=== PATIENT | female | born 1985 | race Caucasian/White ===

== ENCOUNTER 2017-04-28 14:55 | Emergency (ER) | payer BC ==
[2017-04-28 15:02] VITALS: BP 155/87
--- NOTE | 2017-04-28 15:43 | EDM.PDOC ---
ED HPI GENERAL MEDICAL PROBLEM - General Chief Complaint: Chest Pain Stated Complaint: CHEST PRESSURE/SOB Time Seen by Provider: 04/28/17 15:11 Source of Information: Reports: Patient, RN Notes Reviewed - History of Present Illness INITIAL COMMENTS - FREE TEXT/NARRATIVE: 31-year-old female comes in with shortness of breath. She's had this on and off for the last couple of days. Somewhat worse this morning. She feels like she can "not take a deep breath". No Major discomfort with that at this time. Does have history of asthma. She was recently on steroid medicine for an allergic reaction having finished that 3 days ago. Has no current rash hives or any other sign of current allergy. She has developed a mild cough today. I sore throat. No fever or chills. - Related Data Allergies Allergy/AdvReac Type Severity Reaction Status Date / Time No Known Allergies Allergy Verified 04/28/17 15:03 Home Meds: Home Meds . [No Known Home Meds] 04/28/17 [History] Past Medical History Respiratory History: Reports: Asthma Social & Family History - Tobacco Use Smoking Status *Q: Never Smoker Second Hand Smoke Exposure: No - Alcohol Use Days Per Week of Alcohol Use: 1 Number of Drinks Per Day: 4 Total Drinks Per Week: 4 - Recreational Drug Use Recreational Drug Use: No Drug Use in Last 12 Months: No ED ROS GENERAL - Review of Systems Review Of Systems: See Below Constitutional: Denies: Fever, Chills, Diaphoresis HEENT: Denies: Rhinitis, Sinus Problem, Throat Pain, Throat Swelling Respiratory: Reports: Shortness of Breath, Wheezing, Pleuritic Chest Pain (Mild intermittent mild), Cough (Mild, nonproductive) Cardiovascular: Reports: Chest Pain GI/Abdominal: Denies: Abdominal Pain (No current chest discomfort), Nausea, Vomiting Musculoskeletal: Reports: No Symptoms. Denies: Shoulder Pain, Arm Pain, Back Pain Skin: Reports: No Symptoms Neurological: Reports: No Symptoms ED EXAM, GENERAL - Physical Exam Exam: See Below General Appearance: Alert, Anxious (Mild) Eye Exam: Bilateral Eye: PERRL Nose: Normal Inspection Throat/Mouth: Normal Inspection, Normal Oropharynx Head: No: Facial Swelling Neck: Supple, Full Range of Motion. No: Lymphadenopathy (L), Lymphadenopathy (R ) Respiratory/Chest: No Respiratory Distress, Lungs Clear, Normal Breath Sounds. No: Rales, Rhonchi, Wheezing Cardiovascular: Regular Rate, Rhythm Extremities: Normal Inspection. No: Pedal Edema, Leg Pain Neurological: Alert, Oriented, No Motor/Sensory Deficits Skin Exam: Warm, Dry, Normal Color EKG INTERPRETATION EKG Date: 04/28/17 Rhythm: NSR [place]: Normal P-Wave: Present QRS: Normal ST-T: Normal Course - Vital Signs Last Recorded V/S: Last Vital Signs Temp 96.6 F 04/28/17 15:00 Pulse 82 04/28/17 15:00 Resp 16 04/28/17 15:00 BP 155/87 H 04/28/17 15:00 Pulse Ox 96 04/28/17 15:00 - Orders/Labs/Meds Orders: Active Orders 24 hr Category Date Time Status EKG Documentation Completion [RC] ASDIRECTED Care 04/28/17 15:08 Active EKG 12 Lead [EK] Stat Ther 04/28/17 15:08 Ordered - Re-Assessments/Exams Free Text/Narrative Re-Assessment/Exam: 04/28/17 15:46 O2 sats are 100% at the time of my exam. She is pain-free breathing and resting comfortably. EKG normal. Further studies not clinically indicated at this time. Discharge instructions as documented Departure - Departure Time of Disposition: 15:42 Disposition: Home, Self-Care 01 Condition: Fair Clinical Impression: Dyspnea Qualifiers: Dyspnea type: shortness of breath Qualified Code(s): R06.02 - Shortness of breath - Discharge Information Referrals: Haley Moreno MD [Primary Care Provider] - Forms: ED Department Discharge Additional Instructions: Your heart and lungs are checking out well at this time, your EKG was very normal. Your oxygen saturation was running 99-100%. Continue to use your previously prescribed inhaler as needed for any further difficulty breathing. Follow-up clinic as needed, return to ED if symptoms worsening in any way - My Orders Last 24 Hours: My Active Orders 04/28/17 15:08 EKG Documentation Completion [RC] ASDIRECTED EKG 12 Lead [EK] Stat - Assessment/Plan Last 24 Hours: My Active Orders 04/28/17 15:08 EKG Documentation Completion [RC] ASDIRECTED EKG 12 Lead [EK] Stat
== END 2017-04-28 15:50 | disposition home or self-care (01) ==
LOC: JD.ED 14:55
DX: R06.02 Shortness of breath (principal); J45.909 Unspecified asthma, uncomplicated
CPT/HCPCS: 93005; 93010; 99284; 99284-25